=== PATIENT | male | born 1955 | race Caucasian/White ===

== ENCOUNTER 2023-04-11 06:18 | Day surgery (SDC) | payer OTHER ==
[~2023-04-11 06:18] MED LIST: Lactated Ringers 1,000 ML IV SCH; Sodium Chloride 0.9% 10 ML Syringe FLUSH PRN
[2023-04-11] MEDS ORDERED: Propofol 200 MG/20 ML SDV IV ONE (06:19)
[2023-04-11] MEDS ORDERED: Midazolam 1 MG/ML 2 ML SDV IV ONE (06:19)
[2023-04-11] MEDS ORDERED: fentaNYL 100 MCG/2 ML SDV IV ONE (06:19)
[2023-04-11] MEDS ORDERED: Simethicone Drops 40 MG/0.6 ML 30 ML Bottle PO ONE (07:37)
[2023-04-11 07:42] VITALS: BP 104/66; PULSE 83
== END 2023-04-11 09:30 | disposition home or self-care (01) ==
LOC: FB.SDS 06:18
PROVIDERS: ATTEND Surgery
DX: Z12.11 Encounter for screening for malignant neoplasm of colon (principal); K57.30 Diverticulosis of large intestine without perforation or abscess without bleeding; I10 Essential (primary) hypertension; E78.5 Hyperlipidemia, unspecified; E66.9 Obesity, unspecified; Z68.29 Body mass index [BMI] 29.0-29.9, adult; Z79.899 Other long term (current) drug therapy; Z98.890 Other specified postprocedural states; Z88.8 Allergy status to other drugs, medicaments and biological substances
CPT/HCPCS: 45378; A9270; J2250; J2704; J3010; J7120; 00812

== ENCOUNTER 2024-07-19 11:12 | Emergency (ER) | payer OTHER ==
[2024-07-19 12:58] LABS: HEMATOCRIT 40.6 % (38.3-50.1); HEMOGLOBIN 14.2 g/dL (12.9-17.7); MEAN CORPUSCULAR HEMOGLOBIN 32.2 pg (27.0-33.3); MEAN CORPUSCULAR HGB CONC 35.1 g/dL (28.7-35.3); MEAN CORPUSCULAR VOLUME 91.7 fL (80.8-98.7); MEAN PLATELET VOLUME 7.2 fL (6.7-11.0); PLATELET COUNT,PLT 247 x10(3)uL (117-477); RED BLOOD CELL COUNT 4.43 x10(6)uL (3.90-5.90); RED CELL DISTRIBUTION WIDTH 12.9 % (12.4-15.0); WHITE BLOOD CELL COUNT,WBC 12.9 x10-3/uL (3.2-10.1)
[2024-07-19 13:00] LABS: BLOOD UREA NITROGEN,BUN 18 mg/dL (7-18); CALCIUM 9.9 mg/dL (8.6-10.2); CARBON DIOXIDE,CO2 28 mmol/L (21-32); CHLORIDE,CL 105 mmol/L (100-110); CREATININE 1.2 mg/dL (0.70-1.30); EST CRCL DRUG DOSING (CG) 64.67 mL/min; ESTIMATED GFR 66 mL/min (>60); GLUCOSE RANDOM 161 mg/dL (80-116); POTASSIUM,K 4.2 mmol/L (3.5-5.3); SODIUM,NA 141 mmol/L (135-145)
[2024-07-19] MEDS: Ondansetron 4 MG/2 ML SDV IVPUSH ONE (13:02)
[2024-07-19 13:07] LABS: A/G RATIO 1.3; ALANINE AMINOTRANSFERASE,ALT 71 U/L (12-36); ALBUMIN 4.5 g/dL (3.2-4.6); ALKALINE PHOSPHATASE 159 IU/L (56-112); ASPARTATE AMNIOTRANSFERASE,AST 28 IU/L (5-25); BILIRUBIN TOTAL 1.2 mg/dL (0.1-1.3); PROTEIN TOTAL,TP 7.9 g/dL (6.0-8.0)
[2024-07-19 13:09] LABS: TROPONIN I 16.5 pg/mL (4.0-60.3)
[2024-07-19 13:10] LABS: C-REACTIVE PROTEIN < 0.50 mg/dL (<0.50)
[2024-07-19 13:28] LABS: LYMPHOCYTES PERCENT MAN 9 % (13-37); MONOCYTES PERCENT MAN 3 % (4-12); SEG NEUTROPHILS PERCENT MAN 88 % (46-82)
[2024-07-19] MEDS: Sodium Chloride 0.9% 1,000 ML IV ONE (13:30)
[2024-07-19] MEDS: Iopamidol 755 Mg/ML 100 ML Bottle IV SCH (13:36)
[2024-07-19] MEDS ORDERED: Piperacillin/Tazobactam 4.5 GM in Sodium Chloride 0.9% 100 ML IV SCH ×3 (14:45→19:00)
[2024-07-19] MEDS: cefTRIAXone 2 GM Vial IVPUSH ONE (15:05)
[2024-07-19 15:54] LABS: BILIRUBIN,URINE NEGATIVE (NEGATIVE); GLUCOSE,URINE NORMAL (NORMAL); KETONES,URINE NEGATIVE (NEGATIVE); LEUKOCYTE ESTERASE,URINE NEGATIVE (NEGATIVE); NITRITE,URINE NEGATIVE (NEGATIVE); OCCULT BLOOD,URINE NEGATIVE (NEGATIVE); PROTEIN,URINE NEGATIVE (NEGATIVE); UROBILINOGEN,URINE NORMAL (NEGATIVE)
[2024-07-19 15:55] LABS: APPEARANCE,URINE CLEAR (CLEAR); BACTERIA,URINE OCCASIONAL (NS); COLOR,URINE YELLOW (YELLOW); SQUAMOUS EPITHELIAL CELLS,UR RARE (NS,R,O); WBC,URINE NOT SEEN (0-5)
[2024-07-19 17:07] VITALS: BP 120/74; PULSE 93
== END 2024-07-19 15:20 ==
LOC: FB.ED 11:12
DX: K35.80 Unspecified acute appendicitis (principal); I11.0 Hypertensive heart disease with heart failure; I50.9 Heart failure, unspecified; R79.89 Other specified abnormal findings of blood chemistry; D72.829 Elevated white blood cell count, unspecified; I25.10 Atherosclerotic heart disease of native coronary artery without angina pectoris; E78.00 Pure hypercholesterolemia, unspecified; Z79.899 Other long term (current) drug therapy; Z88.8 Allergy status to other drugs, medicaments and biological substances; Z79.82 Long term (current) use of aspirin
CPT/HCPCS: 36415; 74177; 80053; 81001; 84484; 85025; 86140; 93005; 96361; 96374; 96375; 99285; J0696; J2405; J7030; Q9967

== ENCOUNTER 2024-09-15 11:14 | Emergency (ER) | payer MEDICARE ==
[2024-09-15] MEDS ORDERED: Sodium Chloride 0.9% 10 ML Syringe FLUSH PRN (11:52)
[2024-09-15] MEDS: Ondansetron 4 MG/2 ML SDV IVPUSH ONE (12:12)
[2024-09-15 12:13] LABS: BASOPHILS PERCENT AUTO 0.3 % (0.3-3.8); EOSINOPHILS PERCENT AUTO 0.2 % (0.1-6.8); HEMOGLOBIN 13.4 g/dL (12.9-17.7); LYMPHOCYTES PERCENT AUTO 10.7 % (15.8-45.3); MEAN CORPUSCULAR HEMOGLOBIN 31.9 pg (27.0-33.3); MEAN CORPUSCULAR HGB CONC 35.4 g/dL (28.7-35.3); MEAN CORPUSCULAR VOLUME 90.3 fL (80.8-98.7); MEAN PLATELET VOLUME 7.3 fL (6.7-11.0); MONOCYTES ABSOLUTE AUTO 0.6 x10-3/uL (0.0-1.2); MONOCYTES PERCENT AUTO 6.9 % (5.5-15.2); NEUTROPHILS ABSOLUTE AUTO 7.7 x10-3/uL (1.7-6.9); NEUTROPHILS PERCENT AUTO 81.9 % (40.3-71.8); PLATELET COUNT,PLT 218 x10(3)uL (117-477); RED BLOOD CELL COUNT 4.21 x10(6)uL (3.90-5.90); RED CELL DISTRIBUTION WIDTH 13.2 % (12.4-15.0); WHITE BLOOD CELL COUNT,WBC 9.4 x10-3/uL (3.2-10.1)
[2024-09-15] MEDS: Sodium Chloride 0.9% 1,000 ML IV ONE (12:14)
[2024-09-15 12:16] LABS: BLOOD UREA NITROGEN,BUN 20 mg/dL (7-18); BUN/CREATININE RATIO 15.4 (9-20); CALCIUM 9.8 mg/dL (8.6-10.2); CARBON DIOXIDE,CO2 25 mmol/L (21-32); CHLORIDE,CL 104 mmol/L (100-110); CREATININE 1.3 mg/dL (0.70-1.30); EST CRCL DRUG DOSING (CG) 59.69 mL/min; ESTIMATED GFR 60 mL/min (>60); GLUCOSE RANDOM 125 mg/dL (80-116); POTASSIUM,K 3.8 mmol/L (3.5-5.3); SODIUM,NA 139 mmol/L (135-145)
[2024-09-15 12:22] LABS: A/G RATIO 1.4; ALANINE AMINOTRANSFERASE,ALT 40 U/L (12-36); ALBUMIN 4.4 g/dL (3.2-4.6); ALKALINE PHOSPHATASE 147 IU/L (56-112); ASPARTATE AMNIOTRANSFERASE,AST 22 IU/L (5-25); BILIRUBIN TOTAL 1.2 mg/dL (0.1-1.3); PROTEIN TOTAL,TP 7.5 g/dL (6.0-8.0)
[2024-09-15] MEDS: Tamsulosin 0.4 MG Cap.ER PO ONE (13:08)
[2024-09-15 13:20] LABS: APPEARANCE,URINE SLIGHTLY CLOUDY (CLEAR); BILIRUBIN,URINE NEGATIVE (NEGATIVE); COLOR,URINE YELLOW (YELLOW); GLUCOSE,URINE NORMAL (NORMAL); KETONES,URINE 15 mg/dL (NEGATIVE); LEUKOCYTE ESTERASE,URINE NEGATIVE (NEGATIVE); NITRITE,URINE NEGATIVE (NEGATIVE); OCCULT BLOOD,URINE LARGE (NEGATIVE); PROTEIN,URINE NEGATIVE (NEGATIVE); UROBILINOGEN,URINE NORMAL (NEGATIVE)
[2024-09-15 13:28] LABS: BACTERIA,URINE MODERATE (NS); RBC,URINE 75-100 (0-5); SQUAMOUS EPITHELIAL CELLS,UR OCCASIONAL (NS,R,O); WBC,URINE 0-5 (0-5)
[2024-09-15 14:13] VITALS: BP 153/73; PULSE 70
== END 2024-09-15 14:08 | disposition home or self-care (01) ==
LOC: FB.ED 11:14
DX: N20.2 Calculus of kidney with calculus of ureter (principal); R82.71 Bacteriuria; E78.00 Pure hypercholesterolemia, unspecified; I11.0 Hypertensive heart disease with heart failure; I50.9 Heart failure, unspecified; I25.10 Atherosclerotic heart disease of native coronary artery without angina pectoris; Z88.8 Allergy status to other drugs, medicaments and biological substances; Z79.899 Other long term (current) drug therapy; Z79.82 Long term (current) use of aspirin
CPT/HCPCS: 74176; 80053; 81001; 83690; 85025; 86140; 96361; 96374; 99284; 99284-25; A9270-GY; J2405; J7030